=== PATIENT | male | born 1980 | race Hispanic/Latino ===

== ENCOUNTER 2018-06-25 17:15 | Emergency (ER) | payer OTHER ==
[2018-06-25 17:33] VITALS: BP 138/81; PULSE 80; RESP 16; TEMP 98.9; O2SAT 95
[2018-06-25 18:09] LABS: URINE BILIRUBIN NEGATIVE (NEGATIVE); URINE BLOOD NEGATIVE (NEGATIVE); URINE CLARITY Clear (Clear); URINE COLOR Yellow (YELLOW); URINE GLUCOSE (UA) NORMAL (Normal); URINE LEUKOCYTE ESTERASE NEG Leu/uL (Negative); URINE PROTEIN NEGATIVE (NEGATIVE); URINE UROBILINOGEN NORMAL mg/dL (0.2-1.0)
--- NOTE | 2018-06-25 18:16 | C.PDOC ---
History Of Present Illness 38 y/o male, w/ no significant PMhx, presents to the ER complaining of rash to scalp and genitals which has been present for the past 1 month. Patient states that he is taking Ketoconazole with improvement in scalp and Jock Itch Powder without improvement in jock area. Patient reports that the area is still itchy and red. Denies having fever, chills, trauma, penile discharge, and hx of diabetes. Time Seen by Provider: 06/25/18 17:42 Chief Complaint (Nursing): Male Genitourinary History Per: Patient History/Exam Limitations: no limitations Onset/Duration Of Symptoms: Days Current Symptoms Are (Timing): Still Present Severity: Moderate Past Medical History Reviewed: Historical Data, Nursing Documentation, Vital Signs Vital Signs: Last Vital Signs Temp 98.9 F 06/25/18 17:31 Pulse 80 06/25/18 17:31 Resp 16 06/25/18 17:31 BP 138/81 06/25/18 17:31 Pulse Ox 95 06/25/18 17:31 - Medical History PMH: No Chronic Diseases Surgical History: No Surg Hx Family History: States: No Known Family Hx - Social History Hx Alcohol Use: Yes Hx Substance Use: No - Immunization History Hx Tetanus Toxoid Vaccination: No Hx Influenza Vaccination: No Hx Pneumococcal Vaccination: No Review Of Systems Except As Marked, All Systems Reviewed And Found Negative. Constitutional: Negative for: Fever, Chills Genitourinary: Negative for: Penile Discharge Skin: Positive for: Other (rash to scalp and genitals) Physical Exam - Physical Exam Appears: Non-toxic, No Acute Distress Skin: Normal Color, Warm, Dry Head: Atraumatic, Normacephalic Eye(s): bilateral: Normal Inspection Nose: Normal Oral Mucosa: Moist Neck: Supple Chest: Symmetrical Male Genital: Other (erythema and macular rash to region, no superinfection, testes are distended) Neurological/Psych: Oriented x3, Normal Speech ED Course And Treatment O2 Sat by Pulse Oximetry: 95 (RA) Pulse Ox Interpretation: Normal Medical Decision Making Medical Decision Making: Assessment: Jock Itch Plan: --Labs --UA --Diflucan PO Updates: Patient has been discharged and instructed to follow up with urologist in 2 days. Disposition Counseled Patient/Family Regarding: Studies Performed, Diagnosis, Need For Followup, Rx Given - Disposition Referrals: Mega Lane Jr., MD [Staff Provider] - Disposition: HOME/ ROUTINE Disposition Time: 18:16 Condition: STABLE Additional Instructions: follow up with urology within 2 days call to make an appointment take medications as prescribed return to ER if symptoms worsens or progress Prescriptions: Fluconazole [Diflucan] 150 mg PO DAILY #7 tab Nystatin 30 gm TP BID #1 powder Instructions: Aldo Itch (DC) Forms: [facility] ([employer]), General Discharge Instructions - Clinical Impression Clinical Impression: Jock itch - Scribe Statement The provider has reviewed the documentation as recorded by the Nicholasibe Lenard Howell Provider Attestation: All medical record entries made by the Nicholasibe were at my direction and personally dictated by me. I have reviewed the chart and agree that the record accurately reflects my personal performance of the history, physical exam, medical decision making, and the department course for this patient. I have also personally directed, reviewed, and agree with the discharge instructions and disposition.
== END 2018-06-25 18:27 | disposition home or self-care (01) ==
LOC: C.ER 17:15
DX: B35.6 Tinea cruris (principal)